=== PATIENT | male | born 1980 | race Caucasian/White ===

== ENCOUNTER 2019-04-21 12:36 | Observation (INO) | payer OTHER ==
[~2019-04-21] VITALS: Ht 188 cm; Wt 106.2 kg
[2019-04-21] VITALS (10 sets, daily range): BP systolic 129–137; BP diastolic 72–78; PULSE 77–95; TEMP 98.1–99.2
--- NOTE | 2019-04-21 14:00 | NUR ---
Patient arrived to floor from admissions. Patient is ambulatory, alert and oriented, Patient states that he has had some abdominal pain and nausea, but medications he was given at previous facility have made him comfortable. Patient denies needs at this time, call light within reach.
[2019-04-21] MEDS ORDERED: NORCO 325 MG-51 TAB PO (18:54)
--- NOTE | 2019-04-21 19:04 | NUR ---
Patient resting in bed at this time. Patient remains alert and oriented, answers questions appropriately. Post op checks WNL. Patient reports ABD is sore but tolerable, will administer pain medication per order. Denies further needs at this time, call light within reach.
--- NOTE | 2019-04-21 20:01 | NUR ---
patient discharged to home at 1940. iv to L ac removed, catheter intact, bandaid applied. assisted to change and ambulate to bathroom. patient sent home with 4 pack of home norco. prn norco given just before discharge. patient teaching done. discharge forms signed and in chart. escorted out by this nurse via wheelchair and spouse to home via private vehicle.
== END 2019-04-21 20:04 | disposition home or self-care (01) ==
LOC: MEDICAL 12:36 → SURG 13:31
PROVIDERS: ADMIT Surgery
DX: K35.80 Unspecified acute appendicitis (principal)
CPT/HCPCS: G0378; J0690; J2704; J3010; J7030

== ENCOUNTER → 2023-01-24 | Outpatient (CLI) | payer OTHER ==
[~2023-01-24] MED LIST: NORCO 325 MG-51 TAB PO
== END ==
LOC: COL.CARD 08:00
DX: R00.2 Palpitations (principal)

== ENCOUNTER → 2023-12-14 | Outpatient (CLI) | payer OTHER | LOC: COL.RAD 13:47 | DX: R19.5 Other fecal abnormalities (principal); R10.11 Right upper quadrant pain ==